=== PATIENT | female | born 1985 | race Caucasian/White ===

== ENCOUNTER 2022-02-02 15:54 | Emergency (ER) | payer OTHER, BC ==
[2022-02-02] MEDS ORDERED: FAMOTIDINE 20 MG/2 ML VIAL IV STA (16:15)
--- NOTE | 2022-02-02 16:21 | ED ---
Allergic Reaction HPI - General Chief complaint: Allergic Reaction Stated complaint: Finger orallergic reaction - peanut exposure Time Seen by Provider: 02/02/22 16:07 - History of Present Illness Initial Comments: Patient is a 37-year-old female presenting to the emergency room via EMS after a severe ALLERGIC reaction to peanuts earlier today requiring her to utilize one of her EpiPen. She administered her epinephrine at 1520 today and subsequently notified EMS for transportation to the hospital. She began to have increased airway tightening while on route to the emergency room and was given Solu-Medrol by EMS. Along with IV Benadryl 25 mg in addition to the oral dose that she had her knee taken. She reports that she has had ALLERGIC reaction similar to this to peanuts in the past and responded well to typical course of treatment. At this time she denies any shortness of breath does report some throat itching but overall is feeling much better. She denies any chest pain, abdominal pain, nausea or vomiting. She has a past medical history significant for DVT, GERD, asthma, hypothyroidism and paroxysmal A. fib. - Related Data Previous Rx's Medication Instructions Recorded EPINEPHrine (Auto Inject) [Epipen] 0.3 mg IM ONCE PRN 1 Days #1 each 02/02/22 Allergies Allergy/AdvReac Type Severity Reaction Status Date / Time egg Allergy Anaphylaxis Verified 02/02/22 16:26 latex Allergy Rash/Hives Verified 02/02/22 16:26 neomycin Allergy Rash/Hives Verified 02/02/22 16:26 olive extract Allergy Rash/Hives Verified 02/02/22 16:26 olive oil Allergy Rash/Hives Verified 02/02/22 16:26 peanut Allergy Anaphylaxis Verified 02/02/22 16:26 Penicillins Allergy Rash/Hives Verified 02/02/22 16:26 rice Allergy Anaphylaxis Verified 02/02/22 16:26 erythromycin base AdvReac Nausea & Verified 02/02/22 16:26 Vomiting Review of Systems ROS Statement: Those systems with pertinent positive or pertinent negative responses have been documented in the HPI. ROS Other: All systems not noted in ROS Statement are negative. Past Medical History Past Medical History: Atrial Fibrillation, Asthma, Deep Vein Thrombosis (DVT), GERD/Reflux, Musculoskeletal Disorder, Thyroid Disorder History of Any Multi-Drug Resistant Organisms: None Reported Past Surgical History: Adenoidectomy, Hysterectomy, Orthopedic Surgery (Left radius 2004), Tonsillectomy Past Anesthesia/Blood Transfusion Reactions: No Reported Reaction Past Psychological History: No Psychological Hx Reported Smoking Status: Never smoker Past Alcohol Use History: Rare Past Drug Use History: None Reported General Exam General appearance: alert, in no apparent distress Head exam: Present: atraumatic, normocephalic, normal inspection Eye exam: Present: normal appearance, PERRL, EOMI. Absent: scleral icterus, conjunctival injection, periorbital swelling ENT exam: Present: mucous membranes moist, other (Mild oropharynx erythema and edema no exudate airway patent) Expanded Ear exam: Present: normal external inspection Mouth exam: Present: normal external inspection Teeth exam: Present: normal inspection Neck exam: Present: normal inspection, full ROM, lymphadenopathy. Absent: tenderness Respiratory exam: Present: normal lung sounds bilaterally. Absent: respiratory distress, wheezes, rales, rhonchi, stridor Cardiovascular Exam: Present: regular rate, normal rhythm, normal heart sounds. Absent: systolic murmur, diastolic murmur, rubs, gallop, clicks GI/Abdominal exam: Present: soft, normal bowel sounds. Absent: distended, tenderness, guarding, rebound, rigid Rectal exam: Present: deferred Extremities exam: Present: normal inspection. Absent: pedal edema, joint swelling Back exam: Present: normal inspection Neurological exam: Present: alert, oriented X3, CN II-XII intact Psychiatric exam: Present: normal affect, normal mood Skin exam: Present: erythema (Blanchable bilateral cheeks) Course Vital Signs 02/02/22 02/02/22 16:12 18:09 Temperature 98.6 F Pulse Rate 94 98 Respiratory 18 18 Rate Blood Pressure 134/74 111/73 O2 Sat by Pulse 100 97 Oximetry Medical Decision Making - Medical Decision Making 37-year-old female presenting after ALLERGIC reaction to peanuts with use of her EpiPen. Increased respiratory difficulty in the ambulance resulted in her receiving IV Benadryl and IV Solu-Medrol 125 mg. She also took an oral dose of Benadryl 50 mg when she administered her epinephrine pen. Will defer further steroids and Benadryl. Will give a dose of IV Pepcid to complete the allergic response cocktail. No evidence of significant tachycardia or hypotension will complete 500 mL of IV fluids from EMS no further IV fluids. No indication for any diagnostic imaging or laboratory studies at this time will monitor. Throat scratching improved with dose of IV Pepcid. No recurrence of shortness of breath or feeling of airway tightness. No rash or hives noted and vital signs remained stable. Will discharge home with refill of her EpiPen. Reinforced avoiding allergens when possible and usage of EpiPen. Advised to follow-up with her primary care provider. Case discussed with Dr. Son. Disposition Clinical Impression: Allergic reaction Disposition: HOME SELF-CARE Instructions (If sedation given, give patient instructions): Anaphylaxis (ED), Peanut Allergy (ED) Additional Instructions: Please follow-up with your primary care provider. Please obtain your refill of your epinephrine pen. Please continue to avoid peanuts and other allergens when possible. Please return to the Emergency Department if symptoms worsen or any other concerns. Prescriptions: EPINEPHrine (Auto Inject) [Epipen] 0.3 mg IM ONCE PRN 1 Days #1 each PRN Reason: Anaphylaxis Is patient prescribed a controlled substance at d/c from ED?: No Referrals: Nonstaff,Physician [Primary Care Provider] - 1-2 days Time of Disposition: 17:41
[2022-02-02 16:22] VITALS: RESP 18
[2022-02-02 17:41] VITALS: TEMP 98.6
[2022-02-02 18:16] VITALS: BP 111/73; PULSE 98
== END 2022-02-02 18:10 | disposition home or self-care (01) ==
LOC: EC 15:54
DX: T78.01XA Anaphylactic reaction due to peanuts, initial encounter (principal); J45.909 Unspecified asthma, uncomplicated; I48.91 Unspecified atrial fibrillation; Z88.0 Allergy status to penicillin; Z91.040 Latex allergy status; Z88.1 Allergy status to other antibiotic agents; Z91.018 Allergy to other foods; Z91.012 Allergy to eggs
CPT/HCPCS: 96374; 99284